=== PATIENT | female | born 1970 | race African-American/Black ===

== ENCOUNTER → 2018-04-03 | Outpatient (CLI) | payer OTHER ==
--- NOTE | 2018-04-03 12:18 | XCELERA REPORT ---
[address] [address] Lower Extremity Venous Evaluation Name: NAVJOT CHINCHILLA Age: 48 yrs Gender: Female : 1970 Patient Status: Outpatient Patient Location: Study Date: 04/03/2018 11:34 AM Procedure: Color flow and duplex imaging of the veins of the left lower extremity as well as the left Common Femoral vein. Reason For Study: RLE PAIN SWELLING Ordering Physician: LAURA ROJO PA-C Performed By: Lori Perez Right Sided Venous Evaluation Normal vessel filling wall to wall, compression and augmentation as well as Colour flow down to the infrageniculate veins. Left Sided Venous Evaluation The left common femoral vein is fully compressible. Spontaneous and phasic flow is present in the left common femoral vein. Interpretation Summary No duplex evidence of DVT or obstruction in the right lower extremity nor in the left Common Femoral vein. : LAURA ROJO PA-C > Uriah Donahue
== END ==
LOC: SP 11:10
PROVIDERS: ATTEND Physician Assistant
DX: M79.604 Pain in right leg (principal)
CPT/HCPCS: 93971

== ENCOUNTER 2019-06-20 16:48 | Emergency (ER) | payer OTHER ==
[2019-06-20] MEDS ORDERED: DIPHENHYDRAMINE HCL 50 MG/ML VIAL ONE (16:50)
[2019-06-20] MEDS ORDERED: DIPHENHYDRAMINE HCL 50 MG/ML VIAL IV ONE ×2 (16:50)
[2019-06-20] MEDS ORDERED: EPINEPHRINE INJ/PF 1 MG/1 ML AMPULE IM ONE (16:50)
[2019-06-20] MEDS ORDERED: METHYLPREDNISOLONE INJ 125 MG/2 ML SDV ONE (16:50)
[2019-06-20] MEDS ORDERED: EPINEPHRINE INJ/PF 1 MG/1 ML AMPULE ONE (16:50)
[2019-06-20] MEDS ORDERED: METHYLPREDNISOLONE INJ 125 MG/2 ML SDV IV ONE (16:50)
[2019-06-20] MEDS ORDERED: FAMOTIDINE INJ/PF 20 MG/2 ML SDV IV ONE ×2 (16:50→16:51)
--- NOTE | 2019-06-20 17:02 | ER Document Report ---
ED General - General Chief Complaint: Allergic Reaction Stated Complaint: ALLERGIC REACTION Time Seen by Provider: 06/20/19 16:49 Primary Care Provider: DOMINIQUE WHITMORE FNP-C [Primary Care Provider] - Follow up as needed Notes: Patient is a 49-year-old female with history of bee sting allergy that presents to the emergency department for chief complaint of allergic reaction to bee sting. Patient states that about 1 hour prior to ED arrival she was stung in the lower left lip by B. She took 25 mg of Benadryl, but her lip got very swollen, she felt itching in her throat, and tingling, and before she has had s evere reactions to bee stings so she decided come to the emergency department. She had some itching in her skin as well, but that seems to be improving. Denied any chest pain, shortness of breath, difficulty breathing, wheezing, abdominal pain, nausea, vomiting. No other complaints at this time. Past Medical History: Allergies, asthma Past Surgical History: Denies recent or pertinent surgical history Social History: Denies tobacco, alcohol or drug use. Family History: Reviewed and noncontributory for presenting illness Allergies: Reviewed, see documented allergy list. REVIEW OF SYSTEMS: Other than noted above, the 12 point review of systems was reviewed with the patient and were negative, all pertinent findings are included in the HPI. PHYSICAL EXAMINATION: Vital signs reviewed, nursing noted reviewed. GENERAL: Obese female, in no acute distress at this time, no respiratory distress. HEAD: Atraumatic, normocephalic. EYES: Eyes appear normal, extraocular movements intact, sclera anicteric, conjunctiva are normal. ENT: nares patent, oropharynx clear without exudates. Moist mucous membranes. The left lower lip is swollen, edematous, and angioedema NECK: Normal range of motion, supple without lymphadenopathy LUNGS: Breath sounds clear to auscultation bilaterally and equal. No wheezes rales or rhonchi. HEART: Regular rate and rhythm without murmurs ABDOMEN: Soft, nontender, normoactive bowel sounds. No rebound, guarding, or rigidity. No masses appreciated. EXTREMITIES: Nontender, good range of motion, no pitting or edema. NEUROLOGICAL: No focal neurological deficits. Moves all extremities spontaneously Motor and sensory grossly intact on exam. PSYCH: Normal mood, normal affect. SKIN: Warm, Dry, normal turgor, no rashes or lesions noted on exposed skin TRAVEL OUTSIDE OF THE [place] IN LAST 30 DAYS: No - Related Data Allergies/Adverse Reactions: Penicillins Allergy (Verified 10/24/16 17:44) pineapple Allergy (Verified 06/20/19 17:14) bee stings Allergy (Uncoded 06/20/19 17:14) fire ants Allergy (Uncoded 06/20/19 17:14) Past Medical History - Social History Smoking Status: Never Smoker Family History: Reviewed & Not Pertinent - Past Medical History Cardiac Medical History: Reports: Hx Hypercholesterolemia, Hx Hypertension Past Surgical History: Reports: Hx Section, Hx Hysterectomy, Hx Tubal Ligation - Immunizations Hx Diphtheria, Pertussis, Tetanus Vaccination: Yes Physical Exam - Vital signs Vitals: Pulse Ox 92 06/20/19 16:55 Course - Re-evaluation Re-evalutation: Patient seen and examined vital signs reviewed. Patient is noted to have angioedema of her lip, the uvula was midline, no edema. Patient was treated with IM epinephrine, Pepcid IV, Benadryl IV, and IV Solu- Medrol. The patient was re-evaluated and was stable, edema was improving, uvula is midline, without edema, and patient appeared well and stated she no longer had sore throat, or felt her throat was tickling. Evaluation was most consistent with anaphylactic reaction to bee sting, patient will be prescribed an EpiPen, and advised to follow-up with her primary care Results were discussed with the patient at this point, after careful consideration I feel that that patient can be discharged from the emergency department, the patient was educated treatments and reasons to return to the emergency department based on their presumed diagnosis as noted above, they were advised to followup with a primary care physician in 2-3 days. Patient was agreeable to plan of care. *Note is created using voice recognition software and may contain spelling, syntax or grammatical errors. - Vital Signs Vital signs: Temp Pulse Resp BP Pulse Ox 97.8 F 17 162/90 H 92 06/20/19 17:07 06/20/19 17:01 06/20/19 17:01 06/20/19 17:01 Discharge - Discharge Clinical Impression: Anaphylactic reaction Qualifiers: Encounter type: initial encounter Qualified Code(s): T78.2XXA - Anaphylactic shock, unspecified, initial encounter Condition: Stable Disposition: HOME, SELF-CARE Instructions: Acute Allergic Reaction ([facility]) Additional Instructions: Please monitor for any worsening symptoms, if you have difficulty breathing, severe abdominal pain or breakdown to another rash, or your lip start swelling more, do not hesitate to return to the emergency department, you have been prescribed an EpiPen, if you develop sore throat or feel like her throat is closing, please administer yourself the epinephrine and come immediately to the emergency department. Prescriptions: Epinephrine [Epipen] 0.3 mg IJ PRN PRN #1 auto.injct PRN Reason: severe allergic reaction Referrals: DOMINIQUE WHITMORE, DIEGOC [Primary Care Provider] - Follow up in 3-5 days
[2019-06-20] MEDS ORDERED: IPRATROPIUM/ALBUTEROL 0.5-2.5 MG/3 ML AMPUL NEB ONE (17:10)
[2019-06-20 20:25] VITALS: BP 171/89
== END 2019-06-20 20:23 | disposition home or self-care (01) ==
LOC: ER 16:48
DX: T78.2XXA Anaphylactic shock, unspecified, initial encounter (principal); T63.441A Toxic effect of venom of bees, accidental (unintentional), initial encounter; X58.XXXA Exposure to other specified factors, initial encounter; E78.00 Pure hypercholesterolemia, unspecified; I10 Essential (primary) hypertension; Z90.710 Acquired absence of both cervix and uterus; Z88.0 Allergy status to penicillin; Z91.030 Bee allergy status
CPT/HCPCS: 94640; 99284; 96374; 96375; J1200; J0171; J2930; S0028; J7620

== ENCOUNTER 2019-07-06 08:35 | Emergency (ER) | payer OTHER ==
[2019-07-06] MEDS ORDERED: METHYLPREDNISOLONE INJ 125 MG/2 ML SDV ONE (08:41)
[2019-07-06] MEDS ORDERED: EPINEPHRINE INJ/PF 1 MG/1 ML AMPULE ONE (08:41)
[2019-07-06] MEDS ORDERED: DIPHENHYDRAMINE HCL 50 MG/ML VIAL ONE (08:41)
[2019-07-06] MEDS ORDERED: FAMOTIDINE INJ/PF 20 MG/2 ML SDV IV ONE (08:41)
--- NOTE | 2019-07-06 08:52 | ER Document Report ---
ED General - General Chief Complaint: Lip Swelling Stated Complaint: MOUTH SWOLLEN Time Seen by Provider: 07/06/19 08:49 Primary Care Provider: DOMINIQUE WHITMORE FNP-C [Primary Care Provider] - Follow up as needed Notes: 49-year-old female presents to the ER with swollen lip. Noticing her upper lip swelling yesterday. She woke up this morning it was more swollen. The patient denies any insect bites or new foods or exposure to anything abnormal. The patient is on lisinopril. She denies any tongue swelling or throat swelling just upper lip swelling. She figured she better come to the ER for evaluation. She denies any shortness of breath denies chest pain denies abdominal pain denies fever chills cough or sore throat TRAVEL OUTSIDE OF THE [place] IN LAST 30 DAYS: No - Related Data Allergies/Adverse Reactions: iodine Allergy (Verified 07/06/19 08:36) Penicillins Allergy (Verified 10/24/16 17:44) pineapple Allergy (Verified 06/20/19 17:14) bee stings Allergy (Uncoded 06/20/19 17:14) fire ants Allergy (Uncoded 06/20/19 17:14) Past Medical History - Social History Smoking Status: Unknown if Ever Smoked Family History: Reviewed & Not Pertinent - Past Medical History Cardiac Medical History: Reports: Hx Hypercholesterolemia, Hx Hypertension Pulmonary Medical History: Reports: Hx Asthma Renal/ Medical History: Denies: Hx Peritoneal Dialysis Past Surgical History: Reports: Hx Section, Hx Hysterectomy, Hx Tubal Ligation - Immunizations Hx Diphtheria, Pertussis, Tetanus Vaccination: Yes Review of Systems - Review of Systems Constitutional: denies: Chills, Fever EENT: Other - Lip swelling Cardiovascular: No symptoms reported Respiratory: No symptoms reported Gastrointestinal: No symptoms reported Neurological/Psychological: No symptoms reported -: Yes All other systems reviewed and negative Physical Exam - Vital signs Vitals: Temp Pulse Resp BP Pulse Ox 98.2 F 87 18 148/94 H 97 07/06/19 08:42 07/06/19 08:42 07/06/19 08:42 07/06/19 08:42 07/06/19 08:42 - Notes Notes: GENERAL_APPEARANCE: well_nourished, alert, cooperative VITALS: reviewed, see vital signs table. HEAD: no_swelling\tenderness on the head. EYES: PERRL, EOMI, conjunctiva_clear. NOSE: no_nasal_discharge. MOUTH: (-)decreased moisture. Upper lip swelling is noted, there is no tongue swelling THROAT: no_tonsilar_inflammation, no_airway_obstruction. no_lymphadenopathy, patient is a Mallampati 3 airway I am however able to see the uvula with a tongue depressor. There is no swelling. NECK: supple, no_neck_tenderness, (-)thyromegaly. BACK: no_back_tenderness. CHEST_WALL: no_chest_tenderness. LUNGS: no_wheezing, no_rales, no_rhonchi, (-)accessory muscle use, good air exchange bilateral. HEART: normal_rate, normal_rhythm, normal_S1, normal_S2, (-)S3, (-)S4, no_murmur, no_rub. ABDOMEN: soft, no_abd_tenderness, (-)guarding, (-)rebound, no_organomegaly, no_abd_masses. EXTREMITIES: strength 5/5 in all_extremities, good pulses in all_extremities, no_swelling\tenderness in the extremities, no_edema. SKIN: warm, dry, good_color, no_rash. MENTAL_STATUS: speech_clear, oriented_X_3, normal_affect, responds_appropriately to questions. NEURO: Neg Motor or Sensory Deficits on exam, CN 2-12 intact, DTR 2+ symmetric x 4, No cerbellar signs Course - Re-evaluation Re-evalutation: 07/06/19 08:52 49-year-old female presents with angioedema. Her lip started swelling yesterday she thought it was worse this morning she is come in for evaluation there is no tongue swelling no uvular swelling no wheezing. There is been no exposures or insect bites or anything to suggest anaphylaxis no hives or urticaria this appears to be angioedema due to lisinopril. Patient will be monitored closely given steroids and antihistamines and watch. 07/06/19 12:31 Patient's lip is still swollen but it has improved. I think she is safe to go home with steroids and antihistamines. We will stop her lisinopril. We will place her on another blood pressure medication. She is comfortable with this and is comfortable going home again she has no tongue swelling no lower lip swelling in her upper lip swelling has improved no drooling no stridor no respiratory distress. Advised her if she feels that it is getting worse to return to the ER to be rechecked anytime - Vital Signs Vital signs: Temp Pulse Resp BP Pulse Ox 98.2 F 77 19 102/56 L 94 07/06/19 08:42 07/06/19 10:00 07/06/19 10:01 07/06/19 10:00 07/06/19 10:01 Discharge - Discharge Clinical Impression: Angioedema Qualifiers: Encounter type: initial encounter Qualified Code(s): T78.3XXA - Angioneurotic edema, initial encounter Condition: Good Disposition: HOME, SELF-CARE Instructions: Angioedema ([facility]) Additional Instructions: Stop your lisinopril. Take the Norvasc as prescribed. Take the other medicine as prescribed. Prescriptions: Amlodipine Besylate [Norvasc 10 mg Tablet] 10 mg PO DAILY #30 tablet Hydroxyzine Pamoate [Vistaril 50 mg Capsule] 50 mg PO TID PRN #30 capsule PRN Reason: Methylprednisolone [Medrol Dosepack (4 mg/Tab) 21 Tab/Dosepak] 4 mg PO ASDIR PRN #21 tab.ds.pk PRN Reason: Referrals: DOMINIQUE WHITMORE FNP-C [Primary Care Provider] - Follow up as needed
[2019-07-06 12:37] VITALS: BP 111/63
== END 2019-07-06 12:52 | disposition home or self-care (01) ==
LOC: ER 08:35
DX: T78.3XXA Angioneurotic edema, initial encounter (principal); J45.909 Unspecified asthma, uncomplicated; I10 Essential (primary) hypertension; Z79.899 Other long term (current) drug therapy; Z88.0 Allergy status to penicillin; Z91.018 Allergy to other foods; Z91.030 Bee allergy status; Z91.038 Other insect allergy status
CPT/HCPCS: 99283; 96374; 96375; J1200; J2930; S0028

== ENCOUNTER → 2019-10-04 | Outpatient (CLI) | payer OTHER ==
--- NOTE | 2019-10-04 13:48 | WOMENS IMAGING REPORT ---
EXAM DESCRIPTION: 3D SCREENING MAMMO BILAT COMPLETED DATE/TIME: 10/04/2019 11:49 am REASON FOR STUDY: Z12.31 SCREENING MAMMO Z12.31 ENCNTR SCREEN MAMMOGRAM FOR MALIGNANT NEOPLASM OF B RE COMPARISON: 07/12/2014 and 05/06/2013. EXAM PARAMETERS: Views: Standard craniocaudal and mediolateral oblique views of each breast recorded using digital acquisition and breast tomosynthesis. Read with the assistance of CAD. .[facility] - [facility] Director Version 9.2 LIMITATIONS: None. FINDINGS: No suspicious masses, suspicious calcifications or architectural distortion. No areas of c oncern. IMPRESSION: NEGATIVE MAMMOGRAM. BIRADS 1. BREAST DENSITY: b. There are scattered areas of fibroglandular density. BIRAD: ASSESSMENT: 1 NEGATIVE RECOMMENDATION: ROUTINE SCREENING COMMENT: The patient has been notified of the results by letter per MQSA requirements. Additional no tification policies are in place for contacting patient with suspicious or incomplete findings. Quality ID #[id number]: The [employer] recommends an annual screening mammogram for women aged 40 years or over. This facility utilizes a reminder system to ensure that all patients receive reminder letters, and/or direct phone calls for appointments. This includes reminders for routine scr eening mammograms, diagnostic mammograms, or other Breast Imaging Interventions when appropriate. Th is patient will be placed in the appropriate reminder system. TECHNICAL DOCUMENTATION: FINDING NUMBER: (1) ASSESSMENT: (1) JOB ID: [id number] [employer]- All Rights Reserved Reading location - IP/workstation name: [email or web address]
== END ==
LOC: WI 10:40
PROVIDERS: ATTEND Nurse Practitioner Family
DX: Z12.31 Encounter for screening mammogram for malignant neoplasm of breast (principal)
CPT/HCPCS: 77063; 77067